=== PATIENT | male | born 1985 | race Hispanic/Latino ===

== ENCOUNTER 2024-10-04 02:45 | Inpatient (IN) | payer OTHER, SELFPAY ==
[2024-10-03 22:30] VITALS: BP 117/65
[2024-10-03 22:46] VITALS: BMI 29.3
[2024-10-03 22:52] VITALS: BP 124/76
[2024-10-03 23:00] VITALS: BP 119/69
[2024-10-03 23:14] LABS: % Basophils 0.2 % (0-2); % Immature Granulocytes 0.5 % (0-0.5); % Lymphocytes 4.8 % (20.5-51.1); % Monocytes 7.1 % (1.7-9.3); % Neutrophils 87.4 % (42.2-75.2); Absolute Immature Granulocytes 0.1 10^3/uL (0-0.05); Absolute Lymphocytes 0.6 10^3/uL (1.2-3.4); Absolute Monocytes 0.9 10^3/uL (0.1-0.6); Absolute Neutrophils 11.4 10^3/uL (1.4-6.5); Hematocrit 43.9 % (39.0-52.0); Hemoglobin 15.6 g/dL (13.0-18.0); Mean Corp Hgb Conc. 35.5 g/dL (33.0-37.0); Mean Corpuscular Hgb 31.8 pg (27.0-31.0); Mean Corpuscular Volume 89.4 fL (80.0-94.0); Mean Platelet Volume 8.9 fL (7.4-10.4); Nucleated Red Blood Cells % 0 % (-); Platelet Count 185 10^3/uL (130-400); Red Blood Cell Count 4.91 10^6/uL (4.70-6.10); Red Cell Dist. Width 12.4 % (11.5-14.5)
[2024-10-03 23:30] LABS: ALT (SGPT) 29 U/L (0-50); AST (SGOT) 30 U/L (17-59); Albumin 4.2 g/dl (3.5-5.0); Alkaline Phosphatase 48 U/L (38-126); Blood Urea Nitrogen 17 mg/dl (9-20); Calcium 8.6 mg/dl (8.4-10.2); Carbon Dioxide 22 mmol/L (22-30); Chloride 97 mmol/L (98-107); Estimated Creatinine Clearance 117 ml/min; Glucose 169 mg/dl (70-99); Potassium 3.7 mmol/L (3.5-5.1); Sodium 131 mmol/L (135-145); Total Bilirubin 1.2 mg/dl (0.2-1.3); Total Protein 6.7 g/dl (6.3-8.2); eGFR > 60.00
[2024-10-03] MEDS: NSS 1000 IV (23:40)
[2024-10-03] MEDS: ZOFRAN 4 MG IV (23:40)
--- NOTE | 2024-10-03 23:40 | ED.GENMED ---
History of Present Illness
General
Chief Complaint: Abdominal Pain
Source: patient
Exam Limitations: none
Time Seen by Provider: 10/03/24 23:28
Nursing documentation reviewed up to this point in time: agreed with
History of Present Illness
History of Present Illness:
Pleasant 38-year-old male presents with 2 days of right lower quadrant abdominal pain. He states that it is 10 out of 10. He did have nausea and vomiting. Patient has had low-grade fever. Patient condition limits history.
Review of Systems
Review of Systems
Allergies reviewed?: Yes
All Other Systems: ROS reviewed and negative except as documented in HPI and ROS
Constitutional: Reports no symptoms
EENT: Reports no symptoms
Respiratory: Reports no symptoms
Cardiac: Reports no symptoms
ABD/GI: Reports abdominal pain, nausea and vomiting
: Reports no symptoms
Musculoskeletal: Reports no symptoms
Skin: Reports no symptoms
Neurological: Reports no symptoms
Endocrine: Reports no symptoms
Hematologic/Lymphatic: Reports no symptoms
Psychiatric: Reports anxiety
Phy Exam
General Physical Exam
General Presentation: well appearing and no apparent distress
General Skin: warm and dry
General Habitus: normal
General Mental: alert
General Hydration: appears well hydrated
ENT Exam
ENT Exam: EOMI, pharynx normal, neck supple and normocephalic
Eye Exam
Eye Exam: PERRL, cornea clear and conjunctiva normal
Cardiovascular Exam
Cardiovascular Exam: regular rate/rhythm, no edema, no murmur and normal peripheral pulses
Pulmonary Exam
Pulmonary Exam: lungs clear, no respiratory distress, no rales, no crackles, no rhonchi, no stridor, no wheezing and no cough
Gastrointestinal Exam
Gastrointestinal Exam: normal bowel sounds, non distended, no cva tenderness and guarding
Palpation: right lower quadrant: Moderate tenderness (Right lower quadrant with positive McBurney's point tenderness)
Auscultation of Abdomen: normal
Neurological Exam
Neurological Exam: alert, oriented x3, no motor deficits and speech normal
Musculoskeletal Exam
Musculoskeletal Exam: full ROM and no edema
Skin Exam
Skin Exam: normal color, warm/dry, no rash and no petechia
Psychiatric Exam
Psychiatric Exam: normal mood/affect
Sepsis
Sepsis Screening
Sepsis Assessment: Sepsis Ruled Out
Sepsis Screen
Sepsis Screen: Sepsis Ruled Out
Date: 10/04/24
Time: 00:54
Course
Orders/Labs/Results
Orders:
Orders
10/03/24 23:05
Complete Blood Count/With Diff Urgent
Comprehensive Metabolic Panel Urgent
10/03/24 23:33
CT Abd/pelvis W Iv Cont Urgent
Comment:
Reason For Exam: RLQ pain
10/03/24 23:34
0.9% Sodium Chloride 1000 ml [Nss] 1,000 ml IV BOLUS
HYDROmorphone [Dilaudid] 0.5 mg IV NOW STA
Ondansetron Injectable [Zofran] 4 mg IV NOW STA
10/04/24 00:46
Ampicillin/Sulbactam 3 G [Unasyn] 3 gm 0.9% Sodium Chloride 100 ml [Nss] 100 ml IV NOW
10/04/24 00:52
Piperacillin/Tazo 4.5 Gram [Zosyn] 4.5 gram in 100 ml IV NOW
Abnormal Lab Results
10/03/24
23:05
WBC 13.0 H 10^3/uL
(4.8-10.8)
MCH 31.8 H pg
(27.0-31.0)
Abs Immat Gran (auto) 0.1 H 10^3/uL
(0-0.05)
Absolute Neuts (auto) 11.4 H 10^3/uL
(1.4-6.5)
Absolute Lymphs (auto) 0.6 L 10^3/uL
(1.2-3.4)
Absolute Monos (auto) 0.9 H 10^3/uL
(0.1-0.6)
Neutrophils % 87.4 H %
(42.2-75.2)
Lymphocytes % 4.8 L %
(20.5-51.1)
Sodium 131 L mmol/L
(135-145)
Chloride 97 L mmol/L
(98-107)
Glucose 169 H mg/dl
(70-99)
10/03/24 23:05
10/03/24 23:05
Vital Signs
Initial and Last Documented VS:
Initial Vital Signs
Temp Pulse Resp BP Pulse Ox
100.8 F H 104 24 117/65 98
10/03/24 22:30 10/03/24 22:30 10/03/24 22:30 10/03/24 22:30 10/03/24 22:30
Last Documented Vital Signs
Temp Pulse Resp BP Pulse Ox
100.8 F H 104 24 119/69 96
10/03/24 22:30 10/03/24 22:30 10/03/24 22:30 10/03/24 23:00 10/03/24 23:45
*Critical Care Note
Total Time (30-74mins, 75-104mins- exclusive of procedures): Not Applicable
Update Note
Update Note:
CT AP with contrast
IMPRESSION:
Acute appendicitis dilated to 16 mm with prominent adjacent fluid. No free air, however the amount of free fluid, there is still concern for perforation. No well-formed abscess at this time. Multiple appendicoliths are present within the appendix.
Suggestion of some wall thickening of the small bowel which can be reactive.
Findings of this exam were communicated verbally with Dr. Ruben Lozada on WedOctober 04, 2024 at 12:46 AM ET by Rylee Fung M.D.
Spoke with Dr. White who accepted patient on his service. House nurse practitioner to admit patient for acute appendicitis.
ED Attending Note
-
Portions of this chart may have been created with voice recognition software.� Occasional wrong word or��sound alike� substitutions may have occurred due to the inherent limitations of voice recognition software.
Discharge Plan
Departure
Patient Disposition: Admit
Date of Disposition: 10/04/24
Time of Disposition: 00:50
Admit to: Telemetry
Presentation/result/management discussed w/ accepting MD/DO: Cindy
Discharge Problem:
Acute appendicitis
Interventions
Interventions:
*Risk Screen - Suicide Last Done: 10/03/24 22:36
*General Assessment Last Done: 10/03/24 22:46
*Neglect/Abuse Screening Last Done: 10/03/24 22:36
ED- Fall Risk Assessment Last Done: 10/03/24 22:46
*ED COVID-19 Vaccine History Last Done: 10/03/24 22:46
QB-Pxsihp-Peokjhixti Assessment Last Done: 10/03/24 22:46
Discharge Date and Time
Print Language: SURINAMESE
[2024-10-03] MEDS: DILAUDID 0.5 MG IV (23:41)
[2024-10-04] VITALS (15 sets, daily range): BP systolic 0–122; BP diastolic 46–79; BMI 29.0
--- NOTE | 2024-10-04 01:27 | HPS.HSE ---
Addendum entered and electronically signed by Naveed White MD 10/04/24 09:45:
Patient seen and examined. A language line geospatial technologist was used for this encounter.
Patient is a 38 yo M with no pertinent PMH who presents to the ER with 24 hours of RLQ abdominal pain. He reports severe diffuse abdominal discomfort which is primarily in the RLQ. No nausea or vomiting. No associated fevers and chills. Denies
any fluctuations in bowel habits. Denies any prior episodes of similar pain. No family history notable for IBD or colon cancers.
Gen: uncomfortable
Abd: slightly firm, diffusely tender, distended, peritoneal
Labs and CT scan imaging were reviewed
Patient is a 38 yo M p/w acute appendicitis with likely perforation without abscess formation
Given the acuity of his presentation and likely recent perforation, his contamination has yet to be developed into a well-formed drainable abscess. Patient is Nigerian-speaking only and without insurance. Options for management including medical
management with antibiotics and likely IR drainage versus surgical management were considered and discussed. Best course of action for management of his disease is early operative management. Recommend and plan for appendectomy.
Plan for a laparoscopic possible open appendectomy. The procedure itself, as well as the risks, benefits, and alternatives was considered and discussed. Specifically, we discussed the risks of bleeding, infection, injury to surrounding structures
(bowel, bladder), need for open procedure. We discussed that he is at increased risk for postoperative intra-abdominal abscess formation given the likely perforated nature of his appendicitis. We also discussed the potential need for operative
drain placement as well as potential ileus formation and need for NGT placement. Typical postprocedure recovery including need for a more prolonged hospitalization and antibiotic treatment was discussed. All questions answered. Consent signed.
-- Laparoscopic possible open appendectomy
-- NPO, IVF
-- Antibiotics: Zosyn
-- Pain control: Tylenol and IV Dilaudid as needed
Original Note:
Family Physician
-
Family Physician:
Unknown
Chief Complaint
-
Abdominal pain
History of Present Illness
a 38 years old male with no PMH, Nigerian speaking present to ER with abdominal pain. Pain started 24 hrs ago as generalized abdominal pain, intermittent, comes and goes then localized to RLQ rated 10/10 of pain scale. Patient did not receive any
analgesics at home but tried some message to the abdomen/RLQ as he believes that would help with his pain. Patient can not get in comfortable position. Patient has no medical history, no surgical history, and no prescribed med at home.
Medical History
Past Medical History
Past Medical History: Reports None
Past Surgical History: Reports None
Social History
Tobacco: Smoker
Alcohol: Other (weekly )
Drug: None
Personal: Single
Living: Other (with friends )
Employment: Employed (Working at restaurant )
Family History
Family History: Not pertinent
Allergies / Home Medications
Allergies reflects when Allergies were last updated in [facility].
Home Medications with original date entered in [facility]
Allergy/Medication List:
Patient Allergies
Allergy/AdvReac Type Severity Reaction Status Date / Time
No Known Allergies Allergy Verified 10/03/24 22:30
Home Medications Table - record
�Medication �Instructions �Recorded �Confirmed
No Meds [No Current Medications] 10/04/24 10/04/24
Review of Systems
-
History Source: Patient
A 12 point ROS was completed and negative except as noted: Yes
Constitutional: Reports Fever
EENT: Reports No Symptoms
Respiratory: Reports No Symptoms
Cardiac: Reports No Symptoms
Abdomen/GI: Reports Abdominal Pain (RLQ) and Constipated
: Reports No Symptoms
Musculoskeletal: Reports No Symptoms
Skin: Reports No Symptoms
Neurological: Reports No Symptoms
Endocrine: Reports No Symptoms
Physical Exam
Vital Signs
Vital Signs
Temp Pulse Resp BP Pulse Ox
100.8 F H 104 24 122/77 94
10/03/24 22:30 10/03/24 22:30 10/03/24 22:30 10/04/24 00:24 10/04/24 01:00
Physical Exam
General: Pain
Respiratory: Clear
Cardiac: Regular Rhythm
GI: Soft, Tender (RLQ + McBurney`s point and obturator ) and Distended
Musculoskeletal: No Edema
Neuro: Awake and AO x 3
Laboratory Results
-
10/03/24 23:05
10/03/24 23:05
Laboratory Results
Total Bilirubin 1.2 mg/dl (0.2-1.3) 10/03/24 23:05
AST 30 U/L (17-59) 10/03/24 23:05
ALT 29 U/L (0-50) 10/03/24 23:05
Alkaline Phosphatase 48 U/L (38-126) 10/03/24 23:05
Data Reviewed
-
CT Scan: Discussed with Patient
Lab Data: Discussed with Patient
Impression/Plan
-
Abd/PLVS CT shows acute Appendicitis dilated to 16 mm with prominent adjacent fluids. No free air, however the amount of free fluids, there is still concern for perforation. No well-formed abscess at this time. Multiple appendicolith are present
within the appendix. Suggestion of some wall thickening of small bowel which can be reactive.
WBC 13, febrile
IMPRESSION:
acute Appendicitis, Probable perforation
PLAN:
Admit/ observation/ med-surg (Dr. White surgical services).
NPO
Abx
IVF
analgesics as needed.
antiemetics as needed.
DVT prophylaxis SCDs
Code status Full code
[2024-10-04] MEDS: ZOSYN 100 IV (01:44)
[2024-10-04] MEDS: DILAUDID 0.5 MG IV ×4 (02:04→22:14)
[2024-10-04] MEDS: OFIRMEV 100 IV ×2 (02:04→23:58)
[2024-10-04] MEDS: NSS 1000 IV ×2 (03:36→18:29)
--- NOTE | 2024-10-04 04:37 | PTCARENOTE ---
Pt arrived to unit via stretcher able to walk to bed. Pt Moh[place] speaking only, translation line used for assessment, VSS, pain reported 10/10 RLQ, pain medications provided per MAR, IV fluids infusing, call phelps within reach.
[2024-10-04] MEDS: ZOSYN 50 IV ×2 (06:29→18:29)
[2024-10-04] MEDS: TYLENOL 650 MG PO (08:45)
--- NOTE | 2024-10-04 09:45 | W.SUR.PREOP ---
Pre-Operative Surgical Note
-
I have examined this patient prior to the performance of the scheduled procedure.
The patient's condition is unchanged from the time of the current History and
Physical and the patient is able to undergo the scheduled procedure.
--- NOTE | 2024-10-04 13:11 | W.IMMPOSTOP ---
Surgical Immed Post Op Note
-
Primary Surgeon: Cindy
Assisting Surgeon: None
Pre-op Diagnosis: Acute perforated appendicitis
Post-op Diagnosis: Acute perforated appendicitis
Procedure Performed: Laparoscopic appendectomy and drainage of intra-abdominal abscess
Anesthesia Type: General
Specimen / Cultures:
1. Appendix
Estimated Blood Loss: 11 cc
Complications: None
Operative Findings:
1. Acute perforated appendicitis in mid-body, retrocecal, 4 quadrant feculent and purulent contamination
2. Base taken with soliman load stapler, mesentery with [employer] energy device
3. Irrigation of entire abdomen and intra-loop contamination
4. 19 Fr round drain into pelvis and RLQ
5. NGT placed following intubation
[2024-10-04] MEDS: ZOSYN IV (13:46)
--- NOTE | 2024-10-04 14:28 | PTCARENOTE ---
Received back from PACU. VSS, on 4L O2. NGT to LIWS. x3 lap sites assessesd. YVONNE appears patent, dressing clean, dry, intact. Update patient of plan via language line. Encouraged to make needs known.
[2024-10-05] MEDS: ZOSYN 50 IV ×4 (00:23→19:01)
[2024-10-05 03:27] VITALS: BP 100/63
--- NOTE | 2024-10-05 05:31 | PTCARENOTE ---
late entry 2129: pt oob to void in urinal with PCT and NG tube dislodged and fell out. Dr White notified, ok to leave NG out.
[2024-10-05] MEDS: NSS 1000 IV ×2 (06:05→16:34)
[2024-10-05] MEDS: DILAUDID 0.5 MG IV ×3 (06:07→23:03)
[2024-10-05 07:00] VITALS: BP 108/66
--- NOTE | 2024-10-05 09:41 | W.PN.GS2 ---
Today's Communication / Plan
-
`
Assessment / Plan
-
Assessment: 38-year-old male POD #1 status post lap appendectomy
Perforated acute appendicitis with feculent and purulent contamination
Hold off on replacement of NG tube
AFVSS
YVONNE with expected character and quantity of drainage
Reviewed with patient via language line operative findings and anticipated postoperative course/ileus symptoms monitoring
Plan: Maintain n.p.o. except ice chips and sips of clears for comfort
IV fluids renewed
BMP pending for today
Maintain YVONNE
Continue Zosyn for empiric coverage of complicated appendicitis
Routine supportive care awaiting GI recovery postoperatively
Any of the patient's concerns or questions were fully addressed via language line
Subjective Data
-
Date of Service: October 05, 2024
Patient seen and examined.
Utilized language line with skin fitter for translation.
Patient reports postoperative pain predominantly in the right lower quadrant and surgical sites.
Denies nausea; NG tube inadvertently removed overnight.
No flatus or BM yet.
Objective Data
-
Intake and Output
10/04/24 10/05/24 10/06/24
06:59 06:59 06:59
Intake Total 320 / 320 1030 / 1030
Output Total 860 / 860
Balance 320 / 320 170 / 170
Intake:
IV fluids (Total) 320 / 320 900 / 900
Normosol 100 / 100
IV piggybacks 100 / 100
Amount instilled into GI Tube ( 30 / 30
Total)
[place] Sump 30 / 30
Output:
Drain Output (Total) 160 / 160
Left Abdomen Rick-Maza 160 / 160
Gastrointestinal tube output ( 200 / 200
Total)
[place] Sump 200 / 200
Urine, Voided 500 / 500
Vital Signs
Temp Pulse Resp BP Pulse Ox
98.0 F 83 18 108/66 94
10/05/24 07:00 10/05/24 07:00 10/05/24 07:00 10/05/24 07:00 10/05/24 07:00
Lab Results
10/03/24 23:05
Calcium 8.6 mg/dl (8.4-10.2) 10/03/24 23:05
Total Bilirubin 1.2 mg/dl (0.2-1.3) 10/03/24 23:05
AST 30 U/L (17-59) 10/03/24 23:05
ALT 29 U/L (0-50) 10/03/24 23:05
Alkaline Phosphatase 48 U/L (38-126) 10/03/24 23:05
Total Protein 6.7 g/dl (6.3-8.2) 10/03/24 23:05
Albumin 4.2 g/dl (3.5-5.0) 10/03/24 23:05
Physical Exam
-
NAD AAOx3
ABD: Softly distended, tenderness palpation localized in the right lower quadrant and incision sites.
YVONNE with murky serosanguineous fluid in bulb
[2024-10-05 09:53] LABS: Blood Urea Nitrogen 22 mg/dl (9-20); Calcium 8.3 mg/dl (8.4-10.2); Carbon Dioxide 27 mmol/L (22-30); Chloride 102 mmol/L (98-107); Estimated Creatinine Clearance 102 ml/min; Glucose 101 mg/dl (70-99); Sodium 135 mmol/L (135-145); eGFR > 60.00
[2024-10-05] MEDS: DILAUDID 0.25 MG IV (09:54)
[2024-10-05] MEDS: NSS (PRESERVATIVE FREE) 10 ML IV (09:57)
[2024-10-05] MEDS: PROTONIX IV 40 MG IV (09:57)
[2024-10-05 15:05] VITALS: BP 123/76
[2024-10-05] MEDS: OFIRMEV 100 IV (16:29)
--- NOTE | 2024-10-05 16:47 | PTCARENOTE ---
Pt spiked a temp of 101.9 at 1500, IV ofirmev given as ordered.
[2024-10-05] MEDS: LOVENOX 40 MG SC (17:15)
[2024-10-05 23:05] VITALS: BP 124/86
[2024-10-06] MEDS: NSS 1000 IV (01:37)
[2024-10-06] MEDS: ZOSYN 50 IV ×4 (01:38→19:36)
[2024-10-06] MEDS: OFIRMEV 100 IV ×2 (03:45→16:21)
[2024-10-06 06:42] LABS: Hematocrit 39.4 % (39.0-52.0); Hemoglobin 13.5 g/dL (13.0-18.0); Mean Corp Hgb Conc. 34.3 g/dL (33.0-37.0); Mean Corpuscular Hgb 31.6 pg (27.0-31.0); Mean Corpuscular Volume 92.3 fL (80.0-94.0); Mean Platelet Volume 9.6 fL (7.4-10.4); Platelet Count 151 10^3/uL (130-400); Red Blood Cell Count 4.27 10^6/uL (4.70-6.10); Red Cell Dist. Width 12.5 % (11.5-14.5); White Blood Cell Count 10.9 10^3/uL (4.8-10.8)
[2024-10-06 07:05] VITALS: BP 118/76
[2024-10-06 07:11] LABS: Blood Urea Nitrogen 18 mg/dl (9-20); Calcium 7.9 mg/dl (8.4-10.2); Carbon Dioxide 19 mmol/L (22-30); Chloride 105 mmol/L (98-107); Estimated Creatinine Clearance 102 ml/min; Glucose 78 mg/dl (70-99); Potassium 3.4 mmol/L (3.5-5.1); Sodium 136 mmol/L (135-145); eGFR > 60.00
[2024-10-06] MEDS: NSS (PRESERVATIVE FREE) 10 ML IV (08:34)
[2024-10-06] MEDS: PROTONIX IV 40 MG IV (08:35)
--- NOTE | 2024-10-06 09:13 | W.PN.GS2 ---
Addendum entered and electronically signed by JUSTINA Espinoza 10/06/24 11:30:
Sepsis POA secondary to acute perforated appendicitis as evidenced by Fever, tachycardia, tachypnea and leukocytosis present on arrival. Resolved s/p source control with appendectomy. Low grade fever early this morning. Continuing on antibiotics.
Hyponatremia POA, resolved s/p IVF.
Original Note:
Today's Communication / Plan
-
NPO with sips of clears
Continue IVF/ABX
Continue drain
Assessment / Plan
-
Assessment: 38-year-old male POD #2 status post lap appendectomy
Perforated acute appendicitis with feculent and purulent contamination
Hold off on replacement of NG tube
AFVSS
YVONNE with expected character and quantity of drainage
Leukocytosis trending down
Mild hypokalemia
Plan: Maintain n.p.o. except ice chips and sips of clears for comfort
Continue IVF, changed to D5/1/2 NSS with 20kcl
Continue IV analgesics
Maintain YVONNE
Continue Zosyn for empiric coverage of complicated appendicitis
Routine supportive care awaiting GI recovery postoperatively
SCDs/Lovenox for VTE ppx
Any of the patient's concerns or questions were fully addressed via language line
Subjective Data
-
Date of Service: October 06, 2024
Patient seen and examined at bedside with Dr. Mathews. Language Line stone mason utilized for interview. Patient stating he feels a little better today. Pain well controlled. Denies n/v. Not yet passing flatus.
Objective Data
-
Intake and Output
10/05/24 10/06/24 10/07/24
06:59 06:59 06:59
Intake Total 1030 / 1030 1820 / 1820
Output Total 860 / 860 2160 / 2160
Balance 170 / 170 -340 / -340
Intake:
Oral fluids 120 / 120
IV fluids (Total) 900 / 900 1300 / 1300
Normosol 100 / 100
IV piggybacks 100 / 100 400 / 400
Amount instilled into GI Tube ( 30 / 30
Total)
[place] Sump 30 / 30
Output:
Drain Output (Total) 160 / 160 60 / 60
Left Abdomen Rick-Maza 160 / 160 60 / 60
Gastrointestinal tube output ( 200 / 200
Total)
[place] Sump 200 / 200
Urine, Voided 500 / 500 2100 / 2100
Vital Signs
Temp Pulse Resp BP Pulse Ox
99.2 F 69 16 118/76 95
10/06/24 07:05 10/06/24 07:05 10/06/24 07:05 10/06/24 07:05 10/06/24 07:05
Lab Results
10/06/24 05:37
10/06/24 05:37
Calcium 7.9 mg/dl (8.4-10.2) L 10/06/24 05:37
Total Bilirubin 1.2 mg/dl (0.2-1.3) 10/03/24 23:05
AST 30 U/L (17-59) 10/03/24 23:05
ALT 29 U/L (0-50) 10/03/24 23:05
Alkaline Phosphatase 48 U/L (38-126) 10/03/24 23:05
Total Protein 6.7 g/dl (6.3-8.2) 10/03/24 23:05
Albumin 4.2 g/dl (3.5-5.0) 10/03/24 23:05
Physical Exam
-
NAD AAOx3
ABD: Softly distended, tenderness palpation localized in the right lower quadrant and incision sites.
YVONNE with serosanguineous fluid in bulb
[2024-10-06] MEDS: D5/0.45%NSS with KCL 20 MEQ 1000 IV ×2 (09:53→19:36)
[2024-10-06] MEDS: NSS IV (10:01)
--- NOTE | 2024-10-06 11:08 | PN.CDI ---
CDI
- -
CDI:
Physician Documentation Request
Admit Date: 10/04/24 02:45
Dear General Surgery,
Clinical Indicators:
Patient admitted with perforated acute appendicitis; s/p lap appendectomy 10/04.
WBC on admission:
10/03/24
23:05
WBC 13.0 H
Temp on admission:
10/03/24
22:30
Temp 100.8 F H
HR/RR trend on admission:
10/03/24
22:30 10/04/24
02:30 10/04/24
03:25
Pulse 104 118 116
Resp Rate 24 25 20
10/04/24
08:00
Pulse 113
Resp Rate 20
Please clarify which of the following most accurately describes the status of the patient's infection:
Sepsis, POA
- Systemic manifestations of infection, with 2 or more SIRS criteria which include:
- Fever >100.4 degrees F or hypothermia < 96.8 degrees F
- Leukocytosis - WBC > 12,000 or leukopenia - WBC < 4,000 or > 10% bands
- Tachycardia > 90 beats per minute
- Tachypnea - RR > 20 breaths per minute or PaCO2 , 32mmHg
Source: Merck Manual 2013
Acute appendicitis Only, Without Systemic Illness
Other, please specify
Use of terms such as suspected, likely, concern for, or probable (associated with a specific diagnosis that is being evaluated, monitored, or treated as if it exists) are acceptable and can be coded in the inpatient setting, when documented at the
time of discharge.
Thank you,
Yaritza Loredo RN BSN
CDI Specialist
available via tiger text
Please use your independent medical judgment in providing your response.
--- NOTE | 2024-10-06 11:22 | PN.CDI ---
CDI
- -
CDI:
Physician Documentation Request
Admit Date: 10/04/24 02:45
Dear General Surgery,
Clinical Indicators:
Patient admitted with perforated acute appendicitis; s/p lap appendectomy 10/04.
10/03 -10/04 Pain scale ratings: 7-10
Sodium level:
10/03/24
23:05
Sodium 131 L
Based on the above, could you clarify in the progress notes, the appropriate diagnosis, if significant, that supports the above abnormalities and additional evaluation, monitoring and/or treatment rendered:
Hyponatremia
Abnormal lab value, clinically insignificant
Other
Use of terms such as suspected, likely, concern for, or probable (associated with a specific diagnosis that is being evaluated, monitored, or treated as if it exists) are acceptable and can be coded in the inpatient setting, when documented at the
time of discharge.
Thank you,
Yaritza Loredo RN BSN
CDI Specialist
available via tiger text
Please use your independent medical judgment in providing your response.
[2024-10-06] MEDS: DILAUDID 0.25 MG IV (14:04)
[2024-10-06 15:03] VITALS: BP 135/86
--- NOTE | 2024-10-06 15:16 | CM ---
Chart reviewed
Receiving IV antibiotics
NPO with sips of clears
Plan - anticipate home no needs when medically ready
[2024-10-06] MEDS: LOVENOX 40 MG SC (18:06)
[2024-10-06 19:00] VITALS: BP 127/81
[2024-10-06] MEDS: TORADOL 10 MG IV (19:45)
--- NOTE | 2024-10-06 20:41 | PTCARENOTE ---
Patient received at change of shift. OOB to bathroom, standby assist. Laparoscopic sites open to air with surgical glue present. LLQ YVONNE drain with serosanguineous output. Patient reports mild pain while in bed, moderate pain when ambulating. See MAR
for pain medications administered. Patient denies N/V. Reports passing flatus. Plan of care discussed with patient. Language line phone utilized as patient is primarily Welsh speaking. Call phelps within reach. Assessment ongoing.
[2024-10-06 23:00] VITALS: BP 127/81
[2024-10-07] MEDS: ZOSYN 50 IV ×4 (00:10→18:48)
[2024-10-07] MEDS: DILAUDID 0.25 MG IV (03:13)
[2024-10-07] MEDS: D5/0.45%NSS with KCL 20 MEQ 1000 IV ×2 (06:03→16:13)
[2024-10-07] MEDS: TORADOL 10 MG IV ×2 (06:03→13:47)
[2024-10-07 06:41] LABS: Hematocrit 39.3 % (39.0-52.0); Hemoglobin 13.6 g/dL (13.0-18.0); Mean Corp Hgb Conc. 34.6 g/dL (33.0-37.0); Mean Corpuscular Hgb 31.3 pg (27.0-31.0); Mean Corpuscular Volume 90.6 fL (80.0-94.0); Mean Platelet Volume 9.3 fL (7.4-10.4); Platelet Count 170 10^3/uL (130-400); Red Blood Cell Count 4.34 10^6/uL (4.70-6.10); Red Cell Dist. Width 12.4 % (11.5-14.5); White Blood Cell Count 9.7 10^3/uL (4.8-10.8)
[2024-10-07 07:00] VITALS: BP 115/77
[2024-10-07 08:35] LABS: Blood Urea Nitrogen 15 mg/dl (9-20); Calcium 8.1 mg/dl (8.4-10.2); Carbon Dioxide 22 mmol/L (22-30); Chloride 105 mmol/L (98-107); Estimated Creatinine Clearance 116 ml/min; Glucose 139 mg/dl (70-99); Potassium 3.5 mmol/L (3.5-5.1); Sodium 137 mmol/L (135-145); eGFR > 60.00
[2024-10-07] MEDS: NSS (PRESERVATIVE FREE) 10 ML IV (08:55)
[2024-10-07] MEDS: PROTONIX IV 40 MG IV (08:55)
--- NOTE | 2024-10-07 11:06 | W.PN.GS2 ---
Today's Communication / Plan
-
Trial of clears
Assessment / Plan
-
Assessment: 38-year-old male POD #3 status post lap appendectomy
Perforated acute appendicitis with feculent and purulent contamination
AFVSS
YVONNE with expected character and quantity of drainage
Leukocytosis resolved
Mild hypokalemia resolved
Plan:
Trial of clears
Continue IVF
Continue IV analgesics
Maintain YVONNE
Continue Zosyn for empiric coverage of complicated appendicitis
Routine supportive care awaiting GI recovery postoperatively
OOB/Ambulate
SCDs/Lovenox for VTE ppx
Any of the patient's concerns or questions were fully addressed via language line
Subjective Data
-
Date of Service: October 07, 2024
Patient seen and examined at bedside with Dr. Mcelroy. Uzbek language line utilized; supervisor vine fruit farming #[phone]. Denies n/v. Feeling a bit better today.
Objective Data
-
Intake and Output
10/06/24 10/07/24 10/08/24
06:59 06:59 06:59
Intake Total 1820 / 1820 1250 / 1250
Output Total 2160 / 2160 550 / 550
Balance -340 / -340 700 / 700
Intake:
Oral fluids 120 / 120
IV fluids (Total) 1300 / 1300 1200 / 1200
IV piggybacks 400 / 400 50 / 50
Output:
Drain Output (Total) 60 / 60 50 / 50
Left Abdomen Rick-Maza 60 / 60 50 / 50
Urine, Voided 2099 / 2100 500 / 500
Other:
Number of approximated MODERATE 2
amounts of urine
Number of approximated LARGE 1
amounts of urine
Vital Signs
Temp Pulse Resp BP Pulse Ox
99.1 F 73 16 115/77 96
10/07/24 07:00 10/07/24 07:00 10/07/24 07:00 10/07/24 07:00 10/07/24 07:00
Lab Results
10/07/24 05:33
10/07/24 05:33
Calcium 8.1 mg/dl (8.4-10.2) L 10/07/24 05:33
Total Bilirubin 1.2 mg/dl (0.2-1.3) 10/03/24 23:05
AST 30 U/L (17-59) 10/03/24 23:05
ALT 29 U/L (0-50) 10/03/24 23:05
Alkaline Phosphatase 48 U/L (38-126) 10/03/24 23:05
Total Protein 6.7 g/dl (6.3-8.2) 10/03/24 23:05
Albumin 4.2 g/dl (3.5-5.0) 10/03/24 23:05
Physical Exam
-
NAD AAOx3
ABD: Softly distended, tenderness palpation localized in the right lower quadrant and incision sites.
YVONNE with cloudy serosanguineous fluid in bulb
[2024-10-07 15:02] VITALS: BP 136/86
[2024-10-07] MEDS: LOVENOX 40 MG SC (18:48)
[2024-10-07 23:00] VITALS: BP 138/82
[2024-10-07] MEDS: TYLENOL 1000 MG PO (23:28)
[2024-10-08] MEDS: ZOSYN 50 IV ×2 (00:28→06:02)
[2024-10-08] MEDS: TORADOL 10 MG IV ×3 (00:30→20:58)
[2024-10-08] MEDS: D5/0.45%NSS with KCL 20 MEQ 1000 IV ×3 (01:20→21:00)
[2024-10-08 05:15] LABS: Hematocrit 38.7 % (39.0-52.0); Hemoglobin 13.5 g/dL (13.0-18.0); Mean Corp Hgb Conc. 34.9 g/dL (33.0-37.0); Mean Corpuscular Hgb 31.5 pg (27.0-31.0); Mean Corpuscular Volume 90.4 fL (80.0-94.0); Platelet Count 175 10^3/uL (130-400); Red Blood Cell Count 4.28 10^6/uL (4.70-6.10); Red Cell Dist. Width 12.4 % (11.5-14.5); White Blood Cell Count 8.5 10^3/uL (4.8-10.8)
[2024-10-08 05:38] LABS: Blood Urea Nitrogen 9 mg/dl (9-20); Calcium 8.3 mg/dl (8.4-10.2); Carbon Dioxide 25 mmol/L (22-30); Chloride 106 mmol/L (98-107); Estimated Creatinine Clearance 116 ml/min; Glucose 125 mg/dl (70-99); Potassium 3.6 mmol/L (3.5-5.1); Sodium 139 mmol/L (135-145); eGFR > 60.00
[2024-10-08 07:38] VITALS: BP 120/71
[2024-10-08] MEDS: PROTONIX IV 40 MG IV (08:20)
[2024-10-08] MEDS: NSS (PRESERVATIVE FREE) 10 ML IV (08:21)
[2024-10-08 09:39] LABS: Urine Albumin Trace (Neg - Trace); Urine Bilirubin 1+ (Negative); Urine Character Clear (Clear); Urine Color Yellow; Urine Glucose Negative (Negative); Urine Ketone Negative (Negative); Urine Leukocyte Negative (Negative); Urine Nitrite Negative (Negative); Urine Occult Blood Trace (Negative); Urine Specific Gravity 1.015 (<1.030); Urine Urobilinogen 2+ (Neg - 1+)
[2024-10-08 09:50] LABS: Urine Mucus Few
[2024-10-08 09:51] LABS: Urine Red Blood Cell 16-20 /HPF (0-2)
[2024-10-08 09:52] LABS: Urine Bacteria Few (Negative)
--- NOTE | 2024-10-08 10:37 | CON.ID ---
Consultation
-
Date/Time Consultation Requested: October 08, 2024 7012
Date/Time Consultation Performed: October 08, 2024 1040
Requesting Provider: Kaleigh Staton NP
Performing Provider: Dr. Adelaida Ramirez
Reason for Consultation: Fevers postop
Chief Complaint / Past History
Chief Complaint
Abdominal pain
History of Present Illness
38-year-old male without past medical history who presented to the ER on October 03 due to acute right lower quadrant abdominal pain. He was febrile temperature 100.8 with leukocytosis of 13. CAT scan showed perforated appendicitis. October 04,
he was taken to the OR status post laparoscopic appendectomy with findings of four-quadrant feculent and purulent contamination. Intra-abdominal abscess drained; no culture sent. He remains on Zosyn since admission. However patient has
persistent fevers since surgery. Leukocytosis has resolved. Today patient reports that he no longer has abdominal pain. He feels well overall. He is having small bowel movements. He denies chills or sweats. No cough. No urine symptoms. He
works in the [employer] business. He is originally from [facility] and has been in the [place] for the past 2 years.
Past History
Past Medical History: None
Past Surgical History: None
Allergy History:
No Known Allergies Allergy (Verified 10/03/24 22:30)
Medications Reviewed: Yes
Current Antibiotics:
Zosyn d5
Social History
Tobacco: Non-Smoker
Alcohol: None
Drug: None
Personal: Other
Living: Other (Originally from [facility]. Came to [facility] 2021. )
Employment: Employed (Restaurant)
Review of Systems
Review of Systems
General: Fever; Negative Chills or Change in Appetite
HEENT: Negative Sinus Problems, Headache or Pharyngitis
Cardiovascular: Negative Dyspnea
Respiratory: Negative Dyspnea, Cough or Sputum Production
Gasteroenterology: Negative Nausea or Vomiting
Genital / Urological: Negative Dysuria or Flank Pain
Endocrine: Negative Weakness
Skin / Hair / Nails: Negative Rash
Neurological: Negative Dizziness
All systems: All other systems were reviewed and were negative
Vital Signs
Temp Pulse Resp BP Pulse Ox
99.5 F 65 14 120/71 97
10/08/24 07:38 10/08/24 07:38 10/08/24 07:38 10/08/24 07:38 10/08/24 07:38
Selected Entries
10/07/24
23:28
Temp 100.8 F H
Physical Exam
Physical Exam
Constitutional: No Acute Distress, Comfortable and Non-toxic
Eyes: No Conjunctival Hemorrhage and Sclera Anicteric
Cardiovascular: Regular Rate and S1/S2
Pulmonary: Clear
Gastrointestinal: Soft, Non Tender, Distended (mild), Decreased Bowel Sounds and Other (YVONNE drain: cloudy serosanguinous fluid)
Genito-Urinary: Negative CVA Tenderness
Extremities: Negative Edema
Neurological: AO x 3
Lab / Diagnostic Study Results
10/08/24 04:25
10/08/24 04:25
Abs Immat Gran (auto) 0.1 10^3/uL (0-0.05) H 10/03/24 23:05
Absolute Neuts (auto) 11.4 10^3/uL (1.4-6.5) H 10/03/24 23:05
Absolute Lymphs (auto) 0.6 10^3/uL (1.2-3.4) L 10/03/24 23:05
Absolute Monos (auto) 0.9 10^3/uL (0.1-0.6) H 10/03/24 23:05
Absolute Basos (auto) 0.0 10^3/uL (0-0.2) 10/03/24 23:05
Immature Gran % 0.5 % (0-0.5) 10/03/24 23:05
Neutrophils % 87.4 % (42.2-75.2) H 10/03/24 23:05
Lymphocytes % 4.8 % (20.5-51.1) L 10/03/24 23:05
Monocytes % 7.1 % (1.7-9.3) 10/03/24 23:05
Eosinophils % 0.0 % (0-6) 10/03/24 23:05
Basophils % 0.2 % (0-2) 10/03/24 23:05
Ur Squamous Epith Cells 6-10 /LPF (Few) 10/08/24 08:17
Microbiology Results
Micro:
10/08/24 08:17 Influenza Types A & B (ANAND) - Final
Nasal Swab Negative for Influenza A & B, NAAT
Negative results must be combined with clinical observations
and patient history.
Nucleic Acid Amplification test (NAAT)performed on the
[employer] platform.
10/08/24 08:17 Body Fluid Culture - Pending
Peritoneal Fluid Gram Stain - Pending
10/03/24 CT a/p: Acute appendicitis with periappendiceal fluid and inflammatory fat stranding in the right abdomen. No extraluminal free air or well-defined abscess. Multiple appendicoliths. Small bowel wall thickening, favored to be reactive.
Assessment / Plan
# Perforated appendicitis with feculent peritonitis s/p lap appendectomy 10/04/24.
# Persistent fevers
# Leukocytosis resolved
- Check blood cx's x 2.
- Replace Zosyn with Ertapenem 1g IV q24 to cover possible ESBL-organisms as no intra-op culture to guide abx choice.
- If no better, consider repeat CT a/p to evaluate for undrained abscess.
- Follow temps.
--- NOTE | 2024-10-08 11:41 | W.PN.GS2 ---
Today's Communication / Plan
-
Infectious work up, abx changed
IS while awake
NPO with sips
Assessment / Plan
-
Assessment: 38-year-old male POD #4 status post lap appendectomy
Perforated acute appendicitis with feculent and purulent contamination
Low grade fevers persist. Tmax of 100.8 overnight, otherwise VSS
Leukocytosis resolved
Awaiting bowel recovery
YVONNE with expected character and quantity of drainage, culture sent
Flu negative
UA not consistent with infection
CXR with low lung volumes. ABD XR with diffuse bowel dilatation consistent with ileus
Blood cx sent
Plan:
NPO except sips/chips given xr findings
ID consulted, appreciate recs, abx changed to Invanz
Continue IVF
Continue prn analgesics
Maintain YVONNE, cx sent
Routine supportive care awaiting GI recovery postoperatively
OOB/Ambulate
Encourage IS
SCDs/Lovenox for VTE ppx
Any of the patient's concerns or questions were fully addressed via language line beauty specialist #[id number]
Subjective Data
-
Date of Service: October 08, 2024
Patient seen and examined at bedside with Dr. Mcelroy. Denies significant pain. Passing some flatus. Denies n/v. Fevers overnight.
Objective Data
-
Intake and Output
10/07/24 10/08/24 10/09/24
06:59 06:59 06:59
Intake Total 1250 / 1250 1440 / 1440
Output Total 550 / 550 560 / 560
Balance 700 / 700 880 / 880
Intake:
Oral fluids 240 / 240
IV fluids (Total) 1200 / 1200 1200 / 1200
IV piggybacks 50 / 50
Output:
Drain Output (Total) 50 / 50 60 / 60
Left Abdomen Rick-Maza 50 / 50 60 / 60
Urine, Voided 500 / 500 500 / 500
Other:
Number of approximated MODERATE 2 3
amounts of urine
Number of approximated LARGE 1
amounts of urine
Vital Signs
Temp Pulse Resp BP Pulse Ox
99.5 F 65 14 120/71 97
10/08/24 07:38 10/08/24 07:38 10/08/24 07:38 10/08/24 07:38 10/08/24 07:38
Lab Results
10/08/24 04:25
10/08/24 04:25
Calcium 8.3 mg/dl (8.4-10.2) L 10/08/24 04:25
Total Bilirubin 1.2 mg/dl (0.2-1.3) 10/03/24 23:05
AST 30 U/L (17-59) 10/03/24 23:05
ALT 29 U/L (0-50) 10/03/24 23:05
Alkaline Phosphatase 48 U/L (38-126) 10/03/24 23:05
Total Protein 6.7 g/dl (6.3-8.2) 10/03/24 23:05
Albumin 4.2 g/dl (3.5-5.0) 10/03/24 23:05
Physical Exam
-
NAD AAOx3
ABD: Softly distended, tenderness palpation localized in the right lower quadrant and incision sites.
YVONNE with cloudy serosanguineous fluid in bulb
[2024-10-08] MEDS: INVANZ 60 MG IV (13:14)
[2024-10-08 15:17] VITALS: BP 122/80
[2024-10-08] MEDS: DILAUDID 0.5 MG IV (17:02)
[2024-10-08] MEDS: ZOFRAN 4 MG IV (17:08)
[2024-10-08] MEDS: LOVENOX 40 MG SC (18:33)
[2024-10-08 23:00] VITALS: BP 125/77
[2024-10-09] MEDS: DILAUDID 0.5 MG IV ×4 (00:42→13:47)
[2024-10-09] MEDS: OMNIPAQUE 50 ML PO (06:08)
[2024-10-09 07:30] VITALS: BP 132/88
[2024-10-09] MEDS: NSS (PRESERVATIVE FREE) 10 ML IV (07:57)
[2024-10-09] MEDS: PROTONIX IV 40 MG IV (07:57)
[2024-10-09 08:16] LABS: Hematocrit 42.3 % (39.0-52.0); Hemoglobin 14.6 g/dL (13.0-18.0); Mean Corp Hgb Conc. 34.5 g/dL (33.0-37.0); Mean Corpuscular Hgb 31.3 pg (27.0-31.0); Mean Corpuscular Volume 90.6 fL (80.0-94.0); Mean Platelet Volume 9.1 fL (7.4-10.4); Platelet Count 240 10^3/uL (130-400); Red Blood Cell Count 4.67 10^6/uL (4.70-6.10); Red Cell Dist. Width 12.7 % (11.5-14.5); White Blood Cell Count 10.5 10^3/uL (4.8-10.8)
[2024-10-09 08:40] LABS: Blood Urea Nitrogen 8 mg/dl (9-20); Calcium 8.6 mg/dl (8.4-10.2); Carbon Dioxide 24 mmol/L (22-30); Chloride 101 mmol/L (98-107); Estimated Creatinine Clearance 116 ml/min; Glucose 139 mg/dl (70-99); Potassium 3.8 mmol/L (3.5-5.1); Sodium 136 mmol/L (135-145); eGFR > 60.00
[2024-10-09] MEDS: D5/0.45%NSS with KCL 20 MEQ 1000 IV ×2 (09:10→19:58)
--- NOTE | 2024-10-09 09:10 | W.PN.GS2 ---
Addendum entered and electronically signed by Sky Mathews MD 10/09/24 09:30:
CT scan reviewed, significantly dilated small bowel up to the level of the colon consistent with postoperative ileus. No collections noted, will await final scan. Will continue with supportive care until better return of bowel function.
Original Note:
Today's Communication / Plan
-
CT
Assessment / Plan
-
Assessment: 38-year-old male POD #5 status post lap appendectomy for perforated appendicitis with feculent and purulent contamination, expected postoperative ileus and fevers.
NPO except sips/chips given xr findings
Will obtain a CT abdomen pelvis with p.o. and IV contrast to evaluate for any abscess that could be contributing to this prolonged ileus
ID consulted, appreciate recs, abx changed to Invanz
Continue IVF
Continue prn analgesics
Maintain YVONNE, cx sent
Routine supportive care awaiting GI recovery postoperatively
OOB/Ambulate
Encourage IS
SCDs/Lovenox for VTE ppx
Any of the patient's concerns or questions were fully addressed via language line bullet maker
Time Spent
Total Time Spent with Patient (in minutes): 20
Subjective Data
-
Date of Service: October 09, 2024
Interval Events:
No acute events overnight. Slept well. Pain Controlled on pain medication. Denies Nausea/Vomiting, endorses bowel function, but no bowel movements. History taken with the help of a visual bullet maker #[id number]
Objective Data
-
Intake and Output
10/08/24 10/09/24 10/10/24
06:59 06:59 06:59
Intake Total 1440 / 1440 2260 / 2260
Output Total 560 / 560 280 / 280
Balance 880 / 880 1979 / 1979
Intake:
Oral fluids 240 / 240 0 / 0
IV fluids (Total) 1200 / 1200 2200 / 2200
IV piggybacks
Output:
Drain Output (Total)
Left Abdomen Rick-Maza
Urine, Voided 500 / 500 250 / 250
Other:
Number of approximated MODERATE 3 2
amounts of urine
Vital Signs
Temp Pulse Resp BP Pulse Ox
97.6 F 75 16 132/88 97
10/09/24 07:30 10/09/24 07:30 10/09/24 07:30 10/09/24 07:30 10/09/24 07:30
Lab Results
10/09/24 07:15
10/09/24 07:15
Calcium 8.6 mg/dl (8.4-10.2) 10/09/24 07:15
Total Bilirubin 1.2 mg/dl (0.2-1.3) 10/03/24 23:05
AST 30 U/L (17-59) 10/03/24 23:05
ALT 29 U/L (0-50) 10/03/24 23:05
Alkaline Phosphatase 48 U/L (38-126) 10/03/24 23:05
Total Protein 6.7 g/dl (6.3-8.2) 10/03/24 23:05
Albumin 4.2 g/dl (3.5-5.0) 10/03/24 23:05
Physical Exam
-
GENERAL/NEURO: Awake, Alert, no distress
CHEST: Unlabored breathing on RA
ABDOMEN: Soft, nontender, markedly distended, incisions clean dry and intact. YVONNE with serous output
[2024-10-09] MEDS: INVANZ 60 MG IV (11:37)
--- NOTE | 2024-10-09 11:44 | W.PN.ID1 ---
Date of Service
Date of Service: October 09, 2024
Today's Communication
Continue Ertapenem.
Assessment / Plan
# Perforated appendicitis with feculent peritonitis s/p lap appendectomy 10/04/24.
# Persistent fevers - resolving
# Leukocytosis resolved
# Post-op ileus
- Blood cx's x 2 pending
- Received Zosyn 10/03 to 10/07/24
- Continue Ertapenem 1g IV q24 (d2) to cover possible ESBL-organisms as no intra-op culture to guide abx choice.
- Follow temps.
Chief Complaint
-: Fever
Subjective / Review of Systems
No complaints.
Vital Signs / Physical Exam
Vital Signs
Vital Signs
Temp Pulse Resp BP Pulse Ox
97.6 F 75 16 132/88 97
10/09/24 07:30 10/09/24 07:30 10/09/24 07:30 10/09/24 07:30 10/09/24 07:30
Physical Exam
Constitutional: No Acute Distress and Comfortable
Gastrointestinal: Soft, Non Tender, Distended (mild), Decreased Bowel Sounds and Other (YVONNE drain: cloudy serous fluid)
Extremities: Negative Edema
Objective Data
Lab Data
Lab Results
10/09/24 07:15
10/09/24 07:15
Estimated Creat Clear 116 ml/min 10/09/24 07:15
Total Bilirubin 1.2 mg/dl (0.2-1.3) 10/03/24 23:05
AST 30 U/L (17-59) 10/03/24 23:05
ALT 29 U/L (0-50) 10/03/24 23:05
Alkaline Phosphatase 48 U/L (38-126) 10/03/24 23:05
Most recent labs reviewed.
Micro Results:
10/08/24 08:17 Body Fluid Culture - Preliminary
Peritoneal Fluid Gram Stain - Preliminary
10/08/24 13:09 Blood Culture - Pending
Blood/Venous
10/08/24 12:33 Blood Culture - Pending
Blood/Venous
10/08/24 08:17 Influenza Types A & B (ANAND) - Final
Nasal Swab Negative for Influenza A & B, NAAT
Negative results must be combined with clinical observations
and patient history.
Nucleic Acid Amplification test (NAAT)performed on the
[employer] platform.
10/03/24 CT a/p: Acute appendicitis with periappendiceal fluid and inflammatory fat stranding in the right abdomen. No extraluminal free air or well-defined abscess. Multiple appendicoliths. Small bowel wall thickening, favored to be reactive.
10/09/24 CT a/p: Moderate enhancing peritoneal thickening, small amount of peritoneal fluid, small abscesses, and severe inflammation in the appendectomy surgical bed suggesting ACUTE PERITONITIS secondary to appendiceal perforation. Small abscesses
in the appendectomy surgical bed measuring up to 1.5 cm in size. SEVERE SMALL BOWEL ADYNAMIC ILEUS with severe distention of ileal and jejunal small bowel loops.
[2024-10-09 15:30] VITALS: BP 131/68
[2024-10-09] MEDS: DILAUDID 1 MG IV ×3 (16:17→23:47)
[2024-10-09] MEDS: LOVENOX 40 MG SC (17:01)
[2024-10-09 23:00] VITALS: BP 121/79
[2024-10-09] MEDS: TYLENOL 1000 MG PO (23:15)
[2024-10-10] MEDS: D5/0.45%NSS with KCL 20 MEQ 1000 IV ×2 (05:27→17:39)
[2024-10-10] MEDS: DILAUDID 1 MG IV ×3 (05:56→21:41)
[2024-10-10 07:30] VITALS: BP 123/80
--- NOTE | 2024-10-10 08:17 | W.PN.GS2 ---
Today's Communication / Plan
-
-- X-ray abdomen
-- NPO, IVF
Assessment / Plan
-
Assessment: 38-year-old male POD #6 status post lap appendectomy for perforated appendicitis with feculent and purulent contamination, expected postoperative ileus and fevers.
Intermittently febrile, vitals stable
WBC normalized
Blood cx neg, CXR without pneumonia, UA neg
YVONNE culture pending
Repeat CT (10/09/2023): Continued inflammation and question small 1.5 cm abscess formation, no free air, no pelvic or upper abdominal collections, drain in appropriate location
Issues with continue inflammation at surgical site and ileus - expected given presentation with perforated appendicitis, acute 4 quad peritonitis on presentation. Continue with NPO given abdominal exam and CT scan yesterday. Patient reports
passing flatus and BMs, but unsure if this is accurate.
-- X-ray abdomen
-- NPO, IVF
-- ID consulted, appreciate recs, abx changed to Invanz
-- Pain control: Tylenol, Toradol, IV Dilaudid
-- Maintain YVONNE, cx sent
-- Routine supportive care IS, OOB/ambulate awaiting GI recovery postoperatively
-- DVT: SCDs/Lovenox
-- GI: PPI
Any of the patient's concerns or questions were fully addressed via language line supervisor detasseling crew
Subjective Data
-
Date of Service: October 10, 2024
Reports abdominal distention and upper discomfort. Denies any nausea. No episodes of vomiting reported. Patient reports passing flatus and BMs. Intermittently febrile. Reports walking and voiding.
Renal Nurse used for the
Objective Data
-
Intake and Output
10/09/24 10/10/24 10/11/24
06:59 06:59 06:59
Intake Total 2260 / 2260 2350 / 2350
Output Total 280 / 280 625 / 625
Balance 1979 1725 / 1725
Intake:
Oral fluids 0 / 0
IV fluids (Total) 2200 / 2200 2250 / 2250
IV piggybacks 60 / 60 100 / 100
Output:
Drain Output (Total)
Left Abdomen Rikc-Maza
Urine, Voided 250 / 250 625 / 625
Other:
Number of approximated MODERATE 2
amounts of urine
Vital Signs
Temp Pulse Resp BP Pulse Ox
98.5 F 78 18 123/80 95
10/10/24 07:30 10/10/24 07:30 10/10/24 07:30 10/10/24 07:30 10/10/24 07:30
Lab Results
10/09/24 07:15
10/09/24 07:15
Calcium 8.6 mg/dl (8.4-10.2) 10/09/24 07:15
Total Bilirubin 1.2 mg/dl (0.2-1.3) 10/03/24 23:05
AST 30 U/L (17-59) 10/03/24 23:05
ALT 29 U/L (0-50) 10/03/24 23:05
Alkaline Phosphatase 48 U/L (38-126) 10/03/24 23:05
Total Protein 6.7 g/dl (6.3-8.2) 10/03/24 23:05
Albumin 4.2 g/dl (3.5-5.0) 10/03/24 23:05
Physical Exam
-
Gen: NAD, uncomfortable
Abd: soft, distended, diffusely tender, no rebound, involuntary guarding, incisions c/d/i - no erythema or drainage, ecchymosis at umbilicus, YVONNE with minimal seropurulent outputs
[2024-10-10] MEDS: NSS (PRESERVATIVE FREE) 10 ML IV (09:40)
[2024-10-10] MEDS: TORADOL 15 MG IV ×2 (09:40→19:45)
[2024-10-10] MEDS: PROTONIX IV 40 MG IV (09:40)
--- NOTE | 2024-10-10 11:03 | W.PN.ID1 ---
Date of Service
Date of Service: October 10, 2024
Today's Communication
Broaden Ertapenem 1g IV q24 (d3) to meropenem 500mg IV q6H
Assessment / Plan
# Perforated appendicitis with feculent peritonitis s/p lap appendectomy 10/04/24.
# fevers persists
# Leukocytosis resolved
# Post-op ileus
- CT a/p small abscess up to 1.5cm at surgical bed
- Blood cx's x 2 neg to date
- Received Zosyn 10/03 to 10/07/24
- Broaden Ertapenem 1g IV q24 (d3) to meropenem 500mg IV q6H
- Follow temps.
Chief Complaint
-: Fever
Subjective / Review of Systems
No abd pain.
Vital Signs / Physical Exam
Vital Signs
Vital Signs
Temp Pulse Resp BP Pulse Ox
98.5 F 78 18 123/80 95
10/10/24 07:30 10/10/24 07:30 10/10/24 07:30 10/10/24 07:30 10/10/24 07:30
Selected Entries
10/09/24
23:00
Temp 101.4 F H
Physical Exam
Constitutional: No Acute Distress and Comfortable
Cardiovascular: Regular Rate and S1/S2
Gastrointestinal: Soft, Non Tender, Distended, Decreased Bowel Sounds and Other (YVONNE drain: cloudy fluid)
Genito-Urinary: Negative CVA Tenderness
Extremities: Negative Edema
Neurological: AO x 3
Objective Data
Lab Data
Lab Results
10/09/24 07:15
10/09/24 07:15
Estimated Creat Clear 116 ml/min 10/09/24 07:15
Total Bilirubin 1.2 mg/dl (0.2-1.3) 10/03/24 23:05
AST 30 U/L (17-59) 10/03/24 23:05
ALT 29 U/L (0-50) 10/03/24 23:05
Alkaline Phosphatase 48 U/L (38-126) 10/03/24 23:05
Most recent labs reviewed.
Micro Results:
10/08/24 08:17 Body Fluid Culture - Preliminary
Peritoneal Fluid Escherichia coli
Gram Stain - Preliminary
10/08/24 13:09 Blood Culture - Preliminary
Blood/Venous No Growth in 24 hours- Final report to follow
10/08/24 12:33 Blood Culture - Preliminary
Blood/Venous No Growth in 24 hours- Final report to follow
10/08/24 08:17 Influenza Types A & B (ANAND) - Final
Nasal Swab Negative for Influenza A & B, NAAT
Negative results must be combined with clinical observations
and patient history.
Nucleic Acid Amplification test (NAAT)performed on the
[employer] platform.
10/03/24 CT a/p: Acute appendicitis with periappendiceal fluid and inflammatory fat stranding in the right abdomen. No extraluminal free air or well-defined abscess. Multiple appendicoliths. Small bowel wall thickening, favored to be reactive.
10/09/24 CT a/p: Moderate enhancing peritoneal thickening, small amount of peritoneal fluid, small abscesses, and severe inflammation in the appendectomy surgical bed suggesting ACUTE PERITONITIS secondary to appendiceal perforation. Small abscesses
in the appendectomy surgical bed measuring up to 1.5 cm in size. SEVERE SMALL BOWEL ADYNAMIC ILEUS with severe distention of ileal and jejunal small bowel loops.
[2024-10-10 11:35] VITALS: BMI 28.9
--- NOTE | 2024-10-10 14:36 | CM ---
Chart reviewed
NPO, IVF's, NGT
IV antibiotics - ID following
Plan - anticipate home no needs
[2024-10-10] MEDS: MERREM 500 MG IV ×2 (14:39→19:23)
[2024-10-10] MEDS: STERILE WATER FOR INJECTION 10 ML IV ×2 (14:39→19:23)
[2024-10-10 15:30] VITALS: BP 138/90
[2024-10-10] MEDS: LOVENOX 40 MG SC (17:39)
[2024-10-10] MEDS: D5/0.45%NSS with KCL 20 MEQ IV (17:49)
[2024-10-10 23:35] VITALS: BP 129/79
[2024-10-11] MEDS: MERREM 500 MG IV ×5 (00:38→23:55)
[2024-10-11] MEDS: STERILE WATER FOR INJECTION 10 ML IV ×5 (00:39→23:55)
[2024-10-11] MEDS: DILAUDID 1 MG IV ×4 (01:16→16:13)
[2024-10-11] MEDS: D5/0.45%NSS with KCL 20 MEQ 1000 IV ×2 (05:50→21:14)
[2024-10-11 07:30] VITALS: BP 123/89
[2024-10-11] MEDS: PROTONIX IV 40 MG IV (07:43)
[2024-10-11] MEDS: NSS (PRESERVATIVE FREE) 10 ML IV (07:43)
--- NOTE | 2024-10-11 09:19 | W.PN.GS2 ---
Today's Communication / Plan
-
Cont abx per ID
Trial CLD
Assessment / Plan
-
Assessment: 38-year-old male POD #7 status post lap appendectomy for perforated appendicitis with feculent and purulent contamination, expected postoperative ileus and fevers.
No fevers 24hrs, VSS
WBC WNL
Blood cx neg, CXR without pneumonia, UA neg
YVONNE culture E coli, pansensitive except unasyn
Repeat CT (10/09/2023): Continued inflammation and question small 1.5 cm abscess formation, no free air, no pelvic or upper abdominal collections, drain in appropriate location
Issues with continue inflammation at surgical site and ileus - expected given presentation with perforated appendicitis, acute 4 quad peritonitis on presentation. Continue with NPO given abdominal exam and CT scan yesterday. Patient reports
passing flatus and BMs, but unsure if this is accurate.
-- Trial cld
-- Cont IVF
-- ID consulted, appreciate recs, abx changed to Invanz
-- Pain control: Tylenol, Toradol, IV Dilaudid
-- Maintain YVONNE
-- Routine supportive care IS, OOB/ambulate awaiting GI recovery postoperatively
-- DVT: SCDs/Lovenox
-- GI: PPI
Any of the patient's concerns or questions were fully addressed via language line customer sales service manager
Subjective Data
-
Date of Service: October 11, 2024
AFVSS, passing flatus, denies n/v, pain controlled
Objective Data
-
Intake and Output
10/10/24 10/11/24 10/12/24
06:59 06:59 06:59
Intake Total 2350 / 2350 2750 / 2750
Output Total 625 / 625 1430 / 1430 400 / 400
Balance 1725 / 1725 1320 / 1320 -400 / -400
Intake:
IV fluids (Total) 2250 / 2250 2750 / 2750
IV piggybacks 100 / 100
Output:
Drain Output (Total)
Left Abdomen Rick-Maza
Urine, Voided 625 / 625 1420 / 1420 400 / 400
Other:
Number of approximated MODERATE 1
amounts of urine
Vital Signs
Temp Pulse Resp BP Pulse Ox
98.7 F 86 16 123/89 94
10/11/24 07:30 10/11/24 07:30 10/11/24 07:30 10/11/24 07:30 10/11/24 07:30
Lab Results
10/09/24 07:15
10/09/24 07:15
Calcium 8.6 mg/dl (8.4-10.2) 10/09/24 07:15
Total Bilirubin 1.2 mg/dl (0.2-1.3) 10/03/24 23:05
AST 30 U/L (17-59) 10/03/24 23:05
ALT 29 U/L (0-50) 10/03/24 23:05
Alkaline Phosphatase 48 U/L (38-126) 10/03/24 23:05
Total Protein 6.7 g/dl (6.3-8.2) 10/03/24 23:05
Albumin 4.2 g/dl (3.5-5.0) 10/03/24 23:05
Physical Exam
-
Gen: NAD
Abd: soft, moderate distention, drain ss, incisions cdi, mild-mod ttp mostly to BLQ
--- NOTE | 2024-10-11 13:44 | CM ---
Chart reviewed
Clear liquids today
IV antibiotics cont
CM will continue to follow
Plan - anticipate home no needs
--- NOTE | 2024-10-11 15:17 | W.PN.ID1 ---
Date of Service
Date of Service: October 11, 2024
Today's Communication
Continue meropenem.
Assessment / Plan
# Perforated appendicitis with feculent peritonitis s/p lap appendectomy 10/04/24.
# fevers resolving
# Leukocytosis resolved
# Post-op ileus
- CT a/p small abscess up to 1.5cm at surgical bed
- Blood cx's x 2 neg to date
- Received Zosyn 10/03 to 10/07/24 (persistent fever)
- Received Ertapenem 1g IV q24 10/08 - 10/09 (persistent fever)
- Continue meropenem 500mg IV q6H (d5)
- (Of note, the E. coli recovered from YVONNE drain which may not reflect intra-abdominal organisms.)
- Follow temps.
Chief Complaint
-: Fever
Subjective / Review of Systems
No complaints today. No pain.
Vital Signs / Physical Exam
Vital Signs
Vital Signs
Temp Pulse Resp BP Pulse Ox
98.7 F 86 16 123/89 94
10/11/24 07:30 10/11/24 07:30 10/11/24 07:30 10/11/24 07:30 10/11/24 08:00
Physical Exam
Constitutional: No Acute Distress
Cardiovascular: Regular Rate and S1/S2
Gastrointestinal: Soft, Non Tender, Distended (less distended) and Decreased Bowel Sounds
Extremities: Negative Edema
Neurological: AO x 3
Objective Data
Lab Data
Lab Results
10/09/24 07:15
10/09/24 07:15
Estimated Creat Clear 116 ml/min 10/09/24 07:15
Total Bilirubin 1.2 mg/dl (0.2-1.3) 10/03/24 23:05
AST 30 U/L (17-59) 10/03/24 23:05
ALT 29 U/L (0-50) 10/03/24 23:05
Alkaline Phosphatase 48 U/L (38-126) 10/03/24 23:05
Most recent labs reviewed.
Micro Results:
10/08/24 13:09 Blood Culture - Preliminary
Blood/Venous No Growth in 72 hours- Final report to follow
10/08/24 12:33 Blood Culture - Preliminary
Blood/Venous No Growth in 72 hours- Final report to follow
10/08/24 08:17 Body Fluid Culture - Final
Peritoneal Fluid Escherichia coli
Gram Stain - Final
10/08/24 08:17 Influenza Types A & B (ANAND) - Final
Nasal Swab Negative for Influenza A & B, NAAT
Negative results must be combined with clinical observations
and patient history.
Nucleic Acid Amplification test (NAAT)performed on the
[employer] platform.
10/03/24 CT a/p: Acute appendicitis with periappendiceal fluid and inflammatory fat stranding in the right abdomen. No extraluminal free air or well-defined abscess. Multiple appendicoliths. Small bowel wall thickening, favored to be reactive.
10/09/24 CT a/p: Moderate enhancing peritoneal thickening, small amount of peritoneal fluid, small abscesses, and severe inflammation in the appendectomy surgical bed suggesting ACUTE PERITONITIS secondary to appendiceal perforation. Small abscesses
in the appendectomy surgical bed measuring up to 1.5 cm in size. SEVERE SMALL BOWEL ADYNAMIC ILEUS with severe distention of ileal and jejunal small bowel loops.
[2024-10-11 15:18] VITALS: BP 130/82
[2024-10-11] MEDS: LOVENOX 40 MG SC (17:16)
[2024-10-11] MEDS: TORADOL 15 MG IV (21:22)
[2024-10-11] MEDS: FLUSH (NSS) 2 FLUSH IV ×2 (21:23→23:55)
[2024-10-11 23:03] VITALS: BP 128/82
[2024-10-12] MEDS: STERILE WATER FOR INJECTION 10 ML IV ×3 (05:18→17:01)
[2024-10-12] MEDS: MERREM 500 MG IV ×3 (05:18→17:01)
[2024-10-12] MEDS: FLUSH (NSS) 2 FLUSH IV ×2 (05:20→21:42)
[2024-10-12 06:31] VITALS: BMI 26.8
[2024-10-12 07:10] VITALS: BP 125/78
[2024-10-12 07:43] LABS: ALT (SGPT) 72 U/L (0-50); AST (SGOT) 49 U/L (17-59); Albumin 3.2 g/dl (3.5-5.0); Alkaline Phosphatase 173 U/L (38-126); Blood Urea Nitrogen 6 mg/dl (9-20); Calcium 8.2 mg/dl (8.4-10.2); Carbon Dioxide 23 mmol/L (22-30); Chloride 101 mmol/L (98-107); Estimated Creatinine Clearance 102 ml/min; Glucose 111 mg/dl (70-99); Potassium 4.5 mmol/L (3.5-5.1); Sodium 136 mmol/L (135-145); Total Protein 6.3 g/dl (6.3-8.2); eGFR > 60.00
[2024-10-12] MEDS: NSS (PRESERVATIVE FREE) 10 ML IV (08:11)
[2024-10-12] MEDS: PROTONIX IV 40 MG IV (08:11)
[2024-10-12] MEDS: TORADOL 15 MG IV ×2 (08:15→21:41)
--- NOTE | 2024-10-12 09:31 | W.PN.ID1 ---
Date of Service
Date of Service: October 12, 2024
Today's Communication
Continue meropenem for now.
Assessment / Plan
# Perforated appendicitis with feculent peritonitis s/p lap appendectomy 10/04/24.
# fevers resolved
# Leukocytosis resolved
# Post-op ileus - improving
- CT a/p small abscess up to 1.5cm at surgical bed
- Blood cx's x 2 neg to date
- Received Zosyn 10/03 to 10/07/24 (persistent fever)
- Received Ertapenem 1g IV q24 10/08 - 10/09 (persistent fever)
- Continue meropenem 500mg IV q6H (d3)
- (Of note, the E. coli recovered from YVONNE drain which may not reflect intra-abdominal organisms.)
- Follow temps.
Chief Complaint
-: Fever and Other (Perforated appendicitis)
Subjective / Review of Systems
Feels well. + small BM
Vital Signs / Physical Exam
Vital Signs
Vital Signs
Temp Pulse Resp BP Pulse Ox
97.8 F 65 16 125/78 97
10/12/24 07:10 10/12/24 07:10 10/12/24 07:10 10/12/24 07:10 10/12/24 07:10
Physical Exam
Constitutional: No Acute Distress and Comfortable
Cardiovascular: Regular Rate and S1/S2
Pulmonary: Clear
Gastrointestinal: Soft (softer), Non Tender, Distended (less distended) and Normal Bowel Sounds
Neurological: AO x 3
Objective Data
Lab Data
Lab Results
10/09/24 07:15
10/12/24 05:24
Estimated Creat Clear 102 ml/min 10/12/24 05:24
Total Bilirubin 1.0 mg/dl (0.2-1.3) 10/12/24 05:24
AST 49 U/L (17-59) 10/12/24 05:24
ALT 72 U/L (0-50) H 10/12/24 05:24
Alkaline Phosphatase 173 U/L (38-126) H 10/12/24 05:24
Most recent labs reviewed.
Micro Results:
10/08/24 13:09 Blood Culture - Preliminary
Blood/Venous No Growth in 72 hours- Final report to follow
10/08/24 12:33 Blood Culture - Preliminary
Blood/Venous No Growth in 72 hours- Final report to follow
10/08/24 08:17 Body Fluid Culture - Final
Peritoneal Fluid Escherichia coli
Gram Stain - Final
10/08/24 08:17 Influenza Types A & B (ANAND) - Final
Nasal Swab Negative for Influenza A & B, NAAT
Negative results must be combined with clinical observations
and patient history.
Nucleic Acid Amplification test (NAAT)performed on the
[employer] platform.
10/03/24 CT a/p: Acute appendicitis with periappendiceal fluid and inflammatory fat stranding in the right abdomen. No extraluminal free air or well-defined abscess. Multiple appendicoliths. Small bowel wall thickening, favored to be reactive.
10/09/24 CT a/p: Moderate enhancing peritoneal thickening, small amount of peritoneal fluid, small abscesses, and severe inflammation in the appendectomy surgical bed suggesting ACUTE PERITONITIS secondary to appendiceal perforation. Small abscesses
in the appendectomy surgical bed measuring up to 1.5 cm in size. SEVERE SMALL BOWEL ADYNAMIC ILEUS with severe distention of ileal and jejunal small bowel loops.
--- NOTE | 2024-10-12 10:07 | W.PN.GS2 ---
Today's Communication / Plan
-
`
Assessment / Plan
-
Assessment: 38-year-old male POD #8 status post lap appendectomy for perforated appendicitis with feculent and purulent contamination, expected postoperative ileus and fevers.
Repeat CT (10/09/2023): Continued inflammation and question small 1.5 cm abscess formation, no free air, no pelvic or upper abdominal collections, drain in appropriate location
AFVSS
doing well
+GI function
Plan: full liquid diet and advance to low res for dinner
d/c IVF
ID managing abx - currently on meropenem
anticipate likely removal of YVONNE tomorrow
probable d/c home tomorrow assuming tolerance of PO intake and ID abx plan
Any of the patient's concerns or questions were fully addressed via language line audiology technician
Subjective Data
-
Date of Service: October 12, 2024
pt seen and examined
utilized language line
states minimal post op pain
no nausea
tolerating clears
+ BM yesterday
Objective Data
-
Intake and Output
10/11/24 10/12/24 10/13/24
06:59 06:59 06:59
Intake Total 2750 / 2750 380 / 380
Output Total 1430 / 1430 2656 / 2656
Balance 1320 / 1320 -2276 / -2276
Intake:
Oral fluids 380 / 380
IV fluids (Total) 2750 / 2750
Output:
Drain Output (Total)
Left Abdomen Rick-Maza
Urine, Voided 1420 / 1420 2650 / 2650
Other:
Number of approximated MODERATE 1 2
amounts of urine
Vital Signs
Temp Pulse Resp BP Pulse Ox
97.8 F 65 16 125/78 97
10/12/24 07:10 10/12/24 07:10 10/12/24 07:10 10/12/24 07:10 10/12/24 07:10
Lab Results
10/09/24 07:15
10/12/24 05:24
Calcium 8.2 mg/dl (8.4-10.2) L 10/12/24 05:24
Total Bilirubin 1.0 mg/dl (0.2-1.3) 10/12/24 05:24
AST 49 U/L (17-59) 10/12/24 05:24
ALT 72 U/L (0-50) H 10/12/24 05:24
Alkaline Phosphatase 173 U/L (38-126) H 10/12/24 05:24
Total Protein 6.3 g/dl (6.3-8.2) 10/12/24 05:24
Albumin 3.2 g/dl (3.5-5.0) L 10/12/24 05:24
Physical Exam
-
NAD AAOx3
ABD: softly protuberant, not distended
nontender
YVONNE with scant fluid - not purulent
[2024-10-12] MEDS: D5/0.45%NSS with KCL 20 MEQ IV (10:09)
[2024-10-12 15:29] VITALS: BP 119/78
[2024-10-12] MEDS: LOVENOX 40 MG SC (17:01)
[2024-10-12 23:05] VITALS: BP 121/78
[2024-10-13] MEDS: MERREM 500 MG IV ×2 (00:11→05:38)
[2024-10-13] MEDS: FLUSH (NSS) 2 FLUSH IV ×2 (00:12→05:39)
[2024-10-13] MEDS: STERILE WATER FOR INJECTION 10 ML IV ×2 (00:12→05:38)
[2024-10-13 06:14] VITALS: BMI 26.4
[2024-10-13 07:00] VITALS: BP 123/81
--- NOTE | 2024-10-13 08:06 | W.PN.GS2 ---
Addendum entered and electronically signed by Naveed White MD 10/13/24 08:32:
Patient seen and examined. Agree with assessment plan as documented below.
Feels much improved. Denies any abdominal pain. No nausea or vomiting. Passing flatus and stools. Afebrile over 24 hours. Ambulating. Voiding.
Gen: NAD
Abd: soft, NT/ND, non-peritoneal, incisions c/d/i - no erythema, ecchymosis or drainage, YVONNE serous (removed)
Patient is a 38 yo M POD #9 status post lap appendectomy for perforated appendicitis with feculent and purulent contamination, expected postoperative ileus and fevers.
Repeat CT (10/09/2023): Continued inflammation and question small 1.5 cm abscess formation, no free air, no pelvic or upper abdominal collections, drain in appropriate location
AFVSS
+GI function
YVONNE removed at bedside
Ileus appears to have resolved. Stable and cleared for discharge. Awaiting for final antibiotic plan from ID.
Plan:
-- Regular diet
-- Pain control: Tylenol, Toradol, Oxycodone
-- Abx: Meropenem, ID following
-- DC IVF
-- Dispo planning abx plan
Any of the patient's concerns or questions were fully addressed via language line senior compensation analyst
Original Note:
Today's Communication / Plan
-
dispo planning
Assessment / Plan
-
Assessment: 38-year-old male POD #9 status post lap appendectomy for perforated appendicitis with feculent and purulent contamination, expected postoperative ileus and fevers.
Repeat CT (10/09/2023): Continued inflammation and question small 1.5 cm abscess formation, no free air, no pelvic or upper abdominal collections, drain in appropriate location
AFVSS
doing well
+GI function
YVONNE removed at bedside
Plan: Continue solid diet
ID managing abx - currently on meropenem
DC once antibiotic plan in place
Any of the patient's concerns or questions were fully addressed via language line senior compensation analyst
Subjective Data
-
Date of Service: October 13, 2024
Patient seen and examined at bedside with Dr. White. Solution Design Engineer #[id number] utilized. Denies n/v. Tolerating diet. Denies pain. Feels much better.
Objective Data
-
Intake and Output
10/12/24 10/13/24 10/14/24
06:59 06:59 06:59
Intake Total 380 / 380 1779
Output Total 2656 / 2656
Balance -6 / -2276 1776
Intake:
Oral fluids 380 / 380 178 / 1780
Output:
Drain Output (Total)
Left Abdomen Rick-Maza
Urine, Voided 2650 / 2650
Other:
Number of approximated MODERATE 2 4
amounts of urine
Vital Signs
Temp Pulse Resp BP Pulse Ox
97.3 F 64 16 123/81 100
10/13/24 07:00 10/13/24 07:00 10/13/24 07:00 10/13/24 07:00 10/13/24 07:00
Lab Results
10/09/24 07:15
10/12/24 05:24
Calcium 8.2 mg/dl (8.4-10.2) L 10/12/24 05:24
Total Bilirubin 1.0 mg/dl (0.2-1.3) 10/12/24 05:24
AST 49 U/L (17-59) 10/12/24 05:24
ALT 72 U/L (0-50) H 10/12/24 05:24
Alkaline Phosphatase 173 U/L (38-126) H 10/12/24 05:24
Total Protein 6.3 g/dl (6.3-8.2) 10/12/24 05:24
Albumin 3.2 g/dl (3.5-5.0) L 10/12/24 05:24
Physical Exam
-
NAD AAOx3
ABD: softly protuberant, not distended
nontender, incisions clear, dry and approximated
YVONNE with scant fluid - not purulent (removed)
--- NOTE | 2024-10-13 11:39 | CM ---
Chart reviewed. Met with pt
Using lacquer sprayer service - Rep - Malina [id number], spoke with pt
Poss discharge today/tomorrow
Has ride home
Given information for [facility] in [place] - encouraged to call and schedule apt for PCP
Plan - anticipate home no needs
--- NOTE | 2024-10-13 12:43 | W.PN.ID1 ---
Date of Service
Date of Service: October 13, 2024
Today's Communication
- switched to levofloxacin and metronidazole (high bioavailability orals) - plan 10 more days (counting from tomorrow)
- check QTc today and tomorrow AM
Assessment / Plan
# Perforated appendicitis with feculent peritonitis s/p lap appendectomy 10/04/24.
# fevers resolved
# Leukocytosis resolved
# Post-op ileus - improving
- CT a/p small abscess up to 1.5cm at surgical bed
- Blood cx's x 2 neg to date
- Received Zosyn 10/03 to 10/07/24 (persistent fever)
- Received Ertapenem 1g IV q24 10/08 - 10/09 (persistent fever)
- switched to levofloxacin and metronidazole (high bioavailability orals) - plan 10 more days (counting from tomorrow)
- check QTc today (409) and tomorrow AM
- (Of note, the E. coli recovered from YVONNE drain which may not reflect intra-abdominal organisms.)
- Follow up with [facility] has been arranged
Chief Complaint
-: Fever and Other (Perforated appendicitis)
Subjective / Review of Systems
afebrile over 72 hours
bp stable
follow up at [facility] is arranged
Vital Signs / Physical Exam
Vital Signs
Vital Signs
Temp Pulse Resp BP Pulse Ox
97.3 F 64 16 123/81 100
10/13/24 07:00 10/13/24 07:00 10/13/24 07:00 10/13/24 07:00 10/13/24 07:00
Physical Exam
Constitutional: No Acute Distress and Chronically Ill
Cardiovascular: Regular Rate and S1/S2; Negative Murmur or Rub
Pulmonary: Clear and Symmetric; Negative Wheezes or Rales
Gastrointestinal: Soft, Non Tender, Non Distended and Normal Bowel Sounds
Skin: Warm and Dry; Negative Rash or Jaundice
Objective Data
Lab Data
Lab Results
10/09/24 07:15
10/12/24 05:24
Estimated Creat Clear 102 ml/min 10/12/24 05:24
Total Bilirubin 1.0 mg/dl (0.2-1.3) 10/12/24 05:24
AST 49 U/L (17-59) 10/12/24 05:24
ALT 72 U/L (0-50) H 10/12/24 05:24
Alkaline Phosphatase 173 U/L (38-126) H 10/12/24 05:24
Most recent labs reviewed.
Micro Results:
10/08/24 13:09 Blood Culture - Preliminary
Blood/Venous No Growth in 4 days- Final report to follow
10/08/24 12:33 Blood Culture - Preliminary
Blood/Venous No Growth in 4 days- Final report to follow
10/08/24 08:17 Body Fluid Culture - Final
Peritoneal Fluid Escherichia coli
Gram Stain - Final
10/08/24 08:17 Influenza Types A & B (ANAND) - Final
Nasal Swab Negative for Influenza A & B, NAAT
Negative results must be combined with clinical observations
and patient history.
Nucleic Acid Amplification test (NAAT)performed on the
[employer] platform.
10/03/24 CT a/p: Acute appendicitis with periappendiceal fluid and inflammatory fat stranding in the right abdomen. No extraluminal free air or well-defined abscess. Multiple appendicoliths. Small bowel wall thickening, favored to be reactive.
10/09/24 CT a/p: Moderate enhancing peritoneal thickening, small amount of peritoneal fluid, small abscesses, and severe inflammation in the appendectomy surgical bed suggesting ACUTE PERITONITIS secondary to appendiceal perforation. Small abscesses
in the appendectomy surgical bed measuring up to 1.5 cm in size. SEVERE SMALL BOWEL ADYNAMIC ILEUS with severe distention of ileal and jejunal small bowel loops.
Care Review
Plan reviewed with: Other Provider (VACUUM DRIER OPERATOR Shemar - antibiotics)
[2024-10-13] MEDS: STERILE WATER FOR INJECTION IV (12:54)
[2024-10-13] MEDS: MERREM IV (12:54)
[2024-10-13 15:00] VITALS: BP 118/68
[2024-10-13] MEDS: LEVAQUIN 500 MG PO (15:03)
[2024-10-13] MEDS: FLAGYL 500 MG PO ×2 (15:04→23:13)
[2024-10-13] MEDS: LOVENOX 40 MG SC (17:35)
[2024-10-13 23:15] VITALS: BP 111/69
[2024-10-14 07:17] VITALS: BP 102/64
[2024-10-14 07:39] LABS: Hematocrit 43.5 % (39.0-52.0); Hemoglobin 14.9 g/dL (13.0-18.0); Mean Corp Hgb Conc. 34.3 g/dL (33.0-37.0); Mean Corpuscular Hgb 30.7 pg (27.0-31.0); Mean Corpuscular Volume 89.7 fL (80.0-94.0); Mean Platelet Volume 8.2 fL (7.4-10.4); Platelet Count 519 10^3/uL (130-400); Red Blood Cell Count 4.85 10^6/uL (4.70-6.10); Red Cell Dist. Width 12.4 % (11.5-14.5); White Blood Cell Count 13.7 10^3/uL (4.8-10.8)
[2024-10-14] MEDS: FLAGYL 500 MG PO (07:40)
[2024-10-14] MEDS: LEVAQUIN 500 MG PO (07:40)
--- NOTE | 2024-10-14 11:09 | W.PN.GS2 ---
Today's Communication / Plan
-
dispo planning
Assessment / Plan
-
Assessment: 38-year-old male POD #10 status post lap appendectomy for perforated appendicitis with feculent and purulent contamination, expected postoperative ileus and fevers.
Repeat CT (10/09/2023): Continued inflammation and question small 1.5 cm abscess formation, no free air, no pelvic or upper abdominal collections, drain in appropriate location
AFVSS
doing well
+GI function
YVONNE removed at on edside
Increase in WBC this am
Plan: Continue solid diet
ID managing abx - Transitioned to PO yesterday
D/C planning underway, but will discuss with ID team given rise in WBC overnight
Any of the patient's concerns or questions were fully addressed via language line services program manager #[id number]
Subjective Data
-
Date of Service: October 14, 2024
Patient seen and examined at bedside with Dr. Inman. Feeling overall well. Denies pain. Denies n/v. Tolerating diet.
Objective Data
-
Intake and Output
10/13/24 10/14/24 10/15/24
06:59 06:59 06:59
Intake Total 1780 / 1780 480 / 480
Output Total 3 / 3
Balance 1777 / 1777 480 / 480
Intake:
Oral fluids 1780 / 1780 480 / 480
Output:
Drain Output (Total) 3 / 3
Left Abdomen Rick-Maza 3 / 3
Other:
Number of approximated MODERATE 4 2
amounts of urine
Vital Signs
Temp Pulse Resp BP Pulse Ox
97.4 F 60 14 102/64 96
10/14/24 07:17 10/14/24 07:17 10/14/24 07:17 10/14/24 07:17 10/14/24 07:17
Lab Results
10/14/24 06:34
10/12/24 05:24
Calcium 8.2 mg/dl (8.4-10.2) L 10/12/24 05:24
Total Bilirubin 1.0 mg/dl (0.2-1.3) 10/12/24 05:24
AST 49 U/L (17-59) 10/12/24 05:24
ALT 72 U/L (0-50) H 10/12/24 05:24
Alkaline Phosphatase 173 U/L (38-126) H 10/12/24 05:24
Total Protein 6.3 g/dl (6.3-8.2) 10/12/24 05:24
Albumin 3.2 g/dl (3.5-5.0) L 10/12/24 05:24
Physical Exam
-
NAD AAOx3
ABD: softly protuberant, not distended
nontender, incisions clear, dry and approximated
--- NOTE | 2024-10-14 15:29 | W.DS.TRANS ---
Addendum entered and electronically signed by JUSTINA Espinoza 10/14/24 16:45:
dictated #[id number]
Original Note:
DC Summary - Supervisor Instrument Mechanics
-
Discharge Instructions:
Discharge Diagnosis/Procedures Laparoscopic appendectomy and drainage of intra-
abdominal abscess
Diet Regular
Activity No strenuous activity
Additional Activity No heavy lifting (>20 lbs) or strenuous
activities for 2 weeks postoperatively. No
levantar objetos pesados ??(>20 libras) ni
realizar actividades extenuantes pascual las 2
semanas posteriores a la operaci�n
Driving Restrictions No driving if to sore or taking narcotics
Bathing Restrictions OK to Shower
Wound Care Keep incisions clean and dry. Glue will flake
off in 2 to 3 weeks. Stitches will dissolve.
Cover all drain site with gauze as needed for
any drainage. Use ice to the abdomen to reduce
any bruising or swelling.
Mantenga las incisiones limpias y secas. Est�
chris ducharse. El pegamento se desprender� en 2
a 3 semanas. Los puntos se disolver�n. Cubra
todo el sitio de drenaje con jerry gasa seg�n sea
necesario para cualquier drenaje. Use hielo en
el abdomen para reducir los hematomas o la
hinchaz�n.
Instructions:
Stand-Alone Forms:
Changes to Home Medications: No
Discharge Medications:
DC Medications w/original date entered in [employer]
acetaminophen 500 mg tablet (Tylenol Extra Strength) 1,000 mg (2 x 500 mg) PO Q6HPRN PRN mild pain or fever >100.4 #1 tab 10/14/24
ibuprofen 200 mg tablet 400 - 600 mg (2 - 3 x 200 mg) PO Q6HPRN PRN moderate pain #1 tab 10/14/24
levofloxacin 500 mg tablet 500 mg PO DAILY #10 tabs 10/14/24
metronidazole 500 mg tablet 500 mg PO Q8 #30 tabs 10/14/24
Home Medication Changes
Pending Results: No
[2024-10-14 15:36] VITALS: BP 123/71
== END 2024-10-14 16:00 | disposition home or self-care (01) | DRG 853 ==
LOC: 2 SOUTH 02:45
PROVIDERS: Registered Nurse; Surgery; ADMITTING PHYSICIAN Surgery; CONSULT PHYSICIAN Internal Medicine Infectious Disease; EMERGENCY PHYSICIAN Student in an Organized Health Care Education/Training Program
PROC: 0DTJ4ZZ Resection of Appendix, Percutaneous Endoscopic Approach (ICD-10-PCS; 2024-10-04)
PROC: 0W9G40Z Drainage of Peritoneal Cavity with Drainage Device, Percutaneous Endoscopic Approach (ICD-10-PCS; 2024-10-04)
DX: A41.9 Sepsis, unspecified organism (principal); K35.33 Acute appendicitis with perforation, localized peritonitis, and gangrene, with abscess; K56.7 Ileus, unspecified; E87.1 Hypo-osmolality and hyponatremia; K91.89 Other postprocedural complications and disorders of digestive system; Y83.8 Other surgical procedures as the cause of abnormal reaction of the patient, or of later complication, without mention of misadventure at the time of the procedure; F17.200 Nicotine dependence, unspecified, uncomplicated
CPT/HCPCS: 88304; 71046; 74018; 74177; 80048; 80053; 81003; 81015; 85025; 85027; 87015; 87040; 87070; 87071; 87186; 87205; 87502; 93005; 96361; 96365; 96375; 99284; C1776; J1335; Q9967